=== PATIENT | male | born 1990 | race African-American/Black ===

== ENCOUNTER 2018-05-11 22:12 | Emergency (ER) | payer SELFPAY ==
[~2018-05-11] VITALS: Ht 185.4 cm; Wt 94.0 kg
[2018-05-11] MEDS ORDERED: ACETAMINOPHEN 500MG TABLET PO ONE (23:15)
[2018-05-11] MEDS ORDERED: AZITHROMYCIN 500 MG TABLET PO ONE (23:15)
[2018-05-12] VITALS: BP 131/79
== END 2018-05-12 00:01 | disposition home or self-care (01) ==
LOC: ER 22:12
DX: J02.0 Streptococcal pharyngitis (principal)
CPT/HCPCS: 99283